=== PATIENT | female | born 1940 | race Caucasian/White ===

== ENCOUNTER 2017-12-06 09:08 | Inpatient (IN) ==
[2017-12-06] MEDS ORDERED: Chlorhexidine Gluconate 2% 1 Pack (2 Cloths) TOPICAL ONE (09:40)
[2017-12-06] MEDS ORDERED: Metoprolol Tartrate 25 MG Tablet PO ONE (09:40)
[2017-12-06] MEDS ORDERED: Sodium Chlor 0.9% Inj 500 ML IV.SIG SCH (10:00)
[2017-12-06] MEDS ORDERED: Protamine Sulfate Inj 50 MG/5 ML Vial ONE (10:31)
[2017-12-06] MEDS ORDERED: Heparin - SQ 10,000 UNITS/ML Vial ONE (10:31)
[2017-12-06] MEDS ORDERED: Bupivacaine/Epinephrine PF Inj 0.5% 30 ML Vial ONE (10:31)
[2017-12-06] MEDS ORDERED: Heparin/NS PF Inj 0 ML ONE (10:31)
[2017-12-06] MEDS ORDERED: Heparin 10,000 UNITS/10 ML Vial (for IV use) ONE (10:35)
[2017-12-06] MEDS ORDERED: Neostigmine Inj 5 MG/5 ML Syringe IV.PUSH ONE (10:45)
[2017-12-06] MEDS ORDERED: Lidocaine PF 1% Inj 5 ML Syringe INFILTRATN ONE (10:45)
[2017-12-06] MEDS ORDERED: Glycopyrrolate Inj 1 MG/5 ML Syringe IV.PUSH ONE (10:45)
[2017-12-06] MEDS ORDERED: Phenylephrine/NS 1000 MCG/10ML Syringe IV.PUSH ONE (10:45)
[2017-12-06] MEDS ORDERED: Iohexol 300 MG/ML 50 ML Vial (for Rad Diag) IVCONTRAST ONE ×2 (13:29→14:30)
[2017-12-06] MEDS ORDERED: hydrALAZINE HCl Inj 20 MG/ML Vial IV.PUSH PRN (13:37)
[2017-12-06] MEDS ORDERED: Atropine Inj 1 MG/ML Vial IV.PUSH STA (13:37)
[2017-12-06] MEDS ORDERED: Heparin - SQ 10,000 UNITS/ML Vial SQ ONE (13:37)
--- NOTE | 2017-12-06 13:48 | P.OP ---
- Preoperative Diagnosis (1) Ischemia of right lower extremity Date of procedure: 12/06/17 Procedure: Rt Femoral Endarterectomy/Bovine Patch Angioplasty. Intra-op Arteriograms. Anesthesia: MAC, local Surgeon: Walt Bravo MD Purchasing Clerk: Mitch Green Estimated blood loss (mL): 250 Pathology: none sent
[2017-12-06] MEDS ORDERED: fentaNYL Citrate Inj 100 MCG/2 ML Ampul ONE ×2 (14:03)
--- NOTE | 2017-12-06 15:38 | MP ---
cc: Walt Bravo MD, Danny M MD DATE OF OPERATION: 12/06/2017 PREOPERATIVE DIAGNOSIS: Disabling bilateral lower extremity ischemia. POSTOPERATIVE DIAGNOSIS: Disabling bilateral lower extremity ischemia. OPERATIVE PROCEDURE: Right iliofemoral endarterectomy with bovine patch angioplasty. Intraoperative arteriograms. SURGEON: Walt Bravo MD TRIAGE REGISTERED NURSE: MARGARITA Hu ANESTHESIA: Local, MAC. DESCRIPTION OF PROCEDURE: With the patient in the supine position and under IV sedation, the lower abdomen, both groins and thighs prepped with Betadine and draped in a sterile fashion. Appropriate IV antibiotic prophylaxis was administered. Following a protocol timeout, the skin and subcutaneous tissue within the proposed right common femoral access site was preemptively infiltrated with 0.5% Marcaine with epinephrine. A short 5 cm hockey-stick shaped incision was performed within the right inguinal skin crease and directed distally along the course of the SFA. The common superficial and profunda femoral arteries were gently, circumferentially mobilized. The distal external iliac artery was circumferentially mobilized. The patient was systemically heparinized with 5,000 units. An 18-gauge thin-walled arterial needle was inserted into the right mid common femoral lumen, a J-wire advanced retrograde into the iliac artery, and a 5[place] hemostatic sheath was deployed over the J-wire. Retrograde injection of diluted contrast revealed the following: The distal aorta and both common iliac arteries were widely patent. The 2 previously placed stents within the right common iliac were widely patent. High-grade near completely occluding constriction of the distal right external iliac was apparent. The constriction created occlusion of flow by the 5[place] sheath into the femoral artery. The right SFA did not visualize at all. The profunda provided dominant runoff to the right leg. On the left side, the common iliac artery was unrestricted, minor approximately 50% stenosis was confirmed within the distal external iliac, but did not appear to be significantly flow-limiting. The left femoral and profunda femoral arteries were widely patent. The left SFA was diffusely diseased throughout and quite small in caliber, but patent. The popliteal and trifurcation appeared constricted. The 5[place] sheath was removed. The patient was systemically heparinized with 4000 units and ACT measured in the low 300s. The mid external iliac was occluded with a small Satinsky clamp, the profunda and SFA occluded with double looped vessel loops. A vertical arteriotomy was performed along the full length of the anterior surface of the right common femoral. Extensive near completely occluding atherosclerotic plaque was endarterectomized in the usual fashion. Care was taken to ensure a secure endpoint within the proximal SFA and profunda femoral arteries. A bovine patch was secured to the endarterectomy incision with continuous 6-0 Prolene. Prior to placement of the final sutures, the arterial lumen was appropriately flushed, final sutures placed and tied, and pulsatile flow reestablished distally. The midportion of the common femoral patch was cannulated with an 18-gauge butterfly needle. Diluted contrast was injected, confirming a marked improvement, and removal of the iliac inflow constriction. Surprisingly, patency of the SFA was reestablished and flow throughout the SFA confirmed to the popliteal. The mid and distal SFA; however, exhibited several high-grade focal segmental stenoses. The below-knee popliteal and trifurcation appeared relatively nondiseased. The 18-gauge butterfly needle was removed. Heparin was reversed with 30 mg of protamine. Strict hemostasis was assured. The groin incision was closed with 2 separate deep layers of continuous 4-0 Monocryl and skin reapproximated with continuous subcuticular 5-0 Monocryl. Steri-Strips and sterile dressing applied. At the conclusion of the procedure, Doppler flow was robust and biphasic within the posterior tibial artery. MD KAVYA Ferreira/toña , 02:54 PM , 03:07 PM
--- NOTE | 2017-12-06 15:48 | ECG ---
Date Performed: 12/06/2017 Time Performed: 10:11:31 PTAGE: 77 years EKG: Sinus rhythm POSSIBLE RIGHT VENTRICULAR CONDUCTION DELAY NONSPECIFIC T-WAVE ABNORMALITY BORDERLINE ECG NO PREVIOUS TRACING Clinical correlation is recommended DOCTOR: Juanpablo Martin Interpretating Date/Time 12/06/2017 15:46:39
[2017-12-06] MEDS: Ketorolac Inj 30 MG/ML (IVP) Vial IV.PUSH PRN (19:28)
[2017-12-06] MEDS ORDERED: Temazepam 15 MG Capsule PO SCH (21:00)
[2017-12-06] MEDS: Vitamins A,C,E/Lutein/Minerals Tablet PO SCH (21:31)
[2017-12-07] MEDS: Ketorolac Inj 30 MG/ML (IVP) Vial IV.PUSH PRN (08:36)
[2017-12-07] MEDS: Vitamins A,C,E/Lutein/Minerals Tablet PO SCH (08:37)
[2017-12-07] MEDS ORDERED: Calcitriol 0.25 MCG Capsule PO SCH (09:00)
[2017-12-07 11:17] VITALS: BP 142/62; RESP 18; TEMP 98.2; O2SAT 96
--- NOTE | 2017-12-07 12:54 | P.DS ---
Date of admission: 12/06/17 13:37 Primary care physician: Ana M Jean MD Attending physician on discharge: Walt Bravo Anticipated date of discharge: 12/07/17 Brief History from admission: Disabling RLE Ischemia Patient update on day of discharge: Ischemic sxs. resolved DS: Summary - Time Spent with Patient Total time spent providing and/or coordinating discharge services: - Quality: VTE Deep Vein Thrombosis/Pulmonary Embolism Present on Admission: No Exam Vital signs: Vital Signs 12/06/17 13:55 12/06/17 14:14 12/06/17 14:15 Temperature 97.4 F L Pulse Rate 60 62 57 L Respiratory Rate 14 19 Blood Pressure 115/39 L 94/54 L 90/51 L Pulse Oximetry 94 L 96 12/06/17 14:20 12/06/17 14:30 12/06/17 14:35 Temperature Pulse Rate 48 L 48 L Respiratory Rate 18 18 Blood Pressure 120/42 L 99/50 L Pulse Oximetry 99 12/06/17 14:45 12/06/17 15:00 12/06/17 15:45 Temperature 97.5 F L Pulse Rate 52 L 60 48 L Respiratory Rate 14 16 16 Blood Pressure 112/57 L 102/53 L 119/55 L Pulse Oximetry 99 100 99 12/06/17 16:17 12/06/17 17:06 12/06/17 17:37 Temperature 97.5 F L Pulse Rate 57 L 56 L 61 Respiratory Rate 16 16 Blood Pressure 115/59 L 107/55 L Pulse Oximetry 96 97 12/06/17 18:00 12/06/17 19:00 12/06/17 19:37 Temperature 98.2 F 98.2 F Pulse Rate 56 L 54 L 54 L Respiratory Rate 16 16 Blood Pressure 143/67 H 143/67 H Pulse Oximetry 95 95 12/06/17 20:00 12/06/17 21:00 12/06/17 22:00 Temperature Pulse Rate 49 L 48 L 47 L Respiratory Rate Blood Pressure Pulse Oximetry 12/06/17 23:00 12/07/17 00:00 12/07/17 01:00 Temperature 97.1 F L Pulse Rate 54 L 54 L 48 L Respiratory Rate 16 Blood Pressure 117/58 L Pulse Oximetry 95 12/07/17 02:00 12/07/17 03:00 12/07/17 04:00 Temperature 97.1 F L Pulse Rate 67 72 49 L Respiratory Rate 16 Blood Pressure 138/63 Pulse Oximetry 96 12/07/17 05:00 12/07/17 06:00 12/07/17 07:00 Temperature 98.1 F Pulse Rate 59 L 56 L 75 Respiratory Rate 18 Blood Pressure 153/67 H Pulse Oximetry 94 L 12/07/17 08:00 12/07/17 09:00 12/07/17 10:00 Temperature Pulse Rate 72 74 58 L Respiratory Rate 2 L Blood Pressure Pulse Oximetry 12/07/17 11:00 Temperature 98.2 F Pulse Rate 51 L Respiratory Rate 18 Blood Pressure 142/62 H Pulse Oximetry 96 Intake & Output 12/06/17 12/07/17 12/07/17 18:59 06:59 18:59 Intake Total 1820 / 1820 1480 / 1480 Output Total 50 / 50 Balance 1770 / 1770 1480 / 1480 Weight 53.7 kg 53.7 kg Intake: IV 100 / 100 1000 / 1000 LR 1000 mL Inj 1,000 ML @ 30 1000 / 1000 mls/hr IV.SIG .Q24H [facility] Rx#: [id number] Ancef Inj 1,000 MG In NS Inj 100 / 100 100 ML @ 100 mls/hr IV.SIG LIVESTOCK HAULIER [facility] Rx#:[id number] Oral 720 / 720 480 / 480 Anesthesia Amount 1000 / 1000 Output: Estimated Blood Loss 50 / 50 Other: # Voids 1 Date of Last Bowel Movement 12/05/17 12/05/17 Weight On Admission 53.7 kg Discharge Plan - Physicians Team Primary Care Provider: Ana M Jean Attending Provider: Walt Bravo - Rxs /Orders / Referrals /Forms Prescriptions: No Action calcitriol 0.25 mcg Capsule 0.25 mcg PO DAILY clopidogrel [Plavix] 75 mg Tablet 75 mg PO DAILY losartan 50 mg Tablet 50 mg PO DAILY magnesium 30 mg Tablet 30 mg PO DAILY nifedipine 30 mg Tablet Extended Release 24hr 30 mg PO DAILY pitavastatin calcium [Livalo] 1 mg Tablet 1 mg PO DAILY temazepam 30 mg Capsule 1 cap PO HS vit C,[id number]-lutein-zeaxan [PreserVision AREDS 2] 050-039-52-1 mg-unit-mg -mg Capsule 1 tab PO BID
[2017-12-07 13:17] VITALS: PULSE 60
[2017-12-08] MEDS ORDERED: MAGNESIUM 30 MG PO SCH (09:00)
--- NOTE | 2017-12-21 15:24 | MD ---
cc: Walt Bravo MD, Margaret M MD DATE OF DISCHARGE: 12/09/2017 DISCHARGE DIAGNOSES: 1. Disabling bilateral lower extremity ischemia. 2. Hypertension. 3. Hyperlipidemia. 4. Coronary artery disease, status post coronary artery bypass graft/percutaneous transluminal coronary angioplasty. 5. Chronic kidney disease. 6. Degenerative osteoarthritis. 7. Macular degeneration. 8. Impaired fasting glucose. HISTORY: This 77-year-old female presented with progressively disabling bilateral lower extremity ischemia. She described aching, burning, and fatiguing muscle discomfort within both legs limiting her to less than 30 [address] angiogram on 09/18/2017 disclosed a widely patent, previously placed bilateral common iliac stents, questionable severe stenosis, distal left external iliac, severe stenosis right common and proximal left SFA with multiple focal stenoses throughout both SFAs. She was hospitalized for planned right femoral endarterectomy. Further historical details along with pertinent physical findings are detailed in 11/16/2017 summary. HOSPITAL COURSE: Ms. Valenzuela was prepared for and on the day of admission underwent right femoral endarterectomy with bovine patch angioplasty without complication. Post-procedure, she was continued on her regular prehospitalization medications. Over the ensuing 72 hours, she resumed a heart healthy diet, independent ambulation and self-care activities. She was able to void without difficulties and by the third postoperative day was ambulating independently with no significant incisional discomfort. DISPOSITION: Ms. Valenzuela will return home in good condition on a heart healthy diet and her regular prehospitalization medications as detailed in the discharge medication reconciliation form. She was instructed in appropriate home care activities, restrictions and precautions. I will see her in followup in my office in 2 weeks or sooner if needed. MD KAVYA Ferreira/alden , 03:06 PM , 03:14 PM
== END 2017-12-07 14:21 | disposition home or self-care (01) ==
LOC: HSDC 09:08 → EDSTATUS 11:30 → HSDI 13:37 → HCPC 15:56
PROVIDERS: ADMIT Surgery Vascular Surgery; ATTEND Surgery Vascular Surgery